=== PATIENT | female | born 1995 | race Caucasian/White ===

== ENCOUNTER 2024-08-12 20:24 | Inpatient (IN) | payer OTHER, SELFPAY ==
[2024-08-12] VITALS (17 sets, daily range): BP systolic 102–128; BP diastolic 56–68; PULSE 69–89; TEMP 36.4–36.7; O2SAT 96–99; BMI 37.5
[2024-08-12 18:59] LABS: Amnisure Rom* POSITIVE
[2024-08-12 19:37] LABS: Basophils Absolute Auto 0.02 K/uL (0.00-0.30); Basophils Percent Auto 0.2 % (0.0-3.0); Eosinophils Absolute Auto 0.12 K/uL (0.00-0.50); Eosinophils Percent Auto 1.3 % (0.0-7.0); Hemoglobin* 12.5 gm/dL (12.0-16.0); Immature Granulocytes Abs Auto 0.02 K/uL (0.00-0.30); Immature Granulocytes Pct Auto 0.2 %; Lymphocytes Percent Auto 13.8 % (20-44); Mean Corpuscular HGB Conc 35 gm/dL (32-36); Mean Corpuscular Hemoglobin 31 pg (26-34); Mean Corpuscular Volume 89 fL (80-100); Monocytes Percent Auto 6.3 % (0.0-11.0); Neutrophils Percent Auto 78.2 % (42.0-72.0); Platelet Count* 281 K/uL (140-440); RDW Coefficient of Variation % 12.5 % (11.5-15.5); Red Blood Count 4.07 m/uL (4.00-5.20); White Blood Count* 9.22 K/uL (4.50-11.00)
[2024-08-12 19:44] LABS: Albumin* 3.6 g/dL (3.3-5.0); Chloride* 103 mmol/L (96-114); Slide Review Reflex No
[2024-08-12 19:45] LABS: Potassium* 4.1 mmol/L (3.6-5.1); Sodium* 134 mmol/L (135-149)
[2024-08-12 19:47] LABS: Alkaline Phosphatase* 72 U/L (40-150); Anion Gap 7 mEq/L (7-15); Aspartate Amino Transferase* 18 U/L (12-35); Bilirubin Total* 1.3 mg/dL (0.1-1.5); Blood Urea Nitrogen* 11 mg/dL (5-24); Carbon Dioxide* 24 mmol/L (20-32); Creatinine* 0.7 mg/dL (0.5-1.5); Est. Creatinine Clearance* 105.74; Estimated Glomerular Filt Rate 119 ml/min; Glucose* 109 mg/dL (60-115); Total Protein* 6.7 g/dL (6.0-8.3)
[2024-08-12 19:48] LABS: Alanine Aminotransferase* 25 U/L (4-35); Calcium* 9.3 mg/dL (8.4-10.6)
[2024-08-12 20:01] LABS: Hemoglobin A1C* 4.7 % (0-5.6)
[2024-08-12 20:09] LABS: Appearance Urine Turbid (Clear); Bilirubin Urine Negative (Negative); Blood Urine Trace-intact (Negative); Color Urine Yellow (Yellow); Glucose Urine Negative (Negative); Ketones Urine Negative (Negative); Leukocyte Esterase Urine Negative (Negative); Nitrite Urine Negative (Negative); Protein Urine Negative (Negative); Specific Gravity Urine >= 1.030 (1.000-1.030)
[2024-08-12 20:15] LABS: Amphetamine Screen Urine Negative (Negative); Barbiturate Screen Urine Negative (Negative); Benzodiazepines Screen Urine Negative (Negative); Cannabinoid Screen Urine Negative (Negative); Cocaine Screen Urine Negative (Negative); Methadone Screen Urine Negative (Negative); Methamphetamines Screen Urine Negative (Negative); Opiate Screen Urine Negative (Negative); Oxycodone Screen Urine Negative (Negative); Phencyclidine Screen Urine Negative (Negative); Tricyclic Antidepressant Urine Negative (Negative)
[2024-08-12 20:18] LABS: Bacteria Urine Few; RBC Urine 0-2 (0-2); Squamous Epithelial Cell Urine Few (None-Few)
--- NOTE | 2024-08-12 20:45 | PM.OBHPLI ---
OB - H&P: HPI Labor/Induction History of Present Illness Time Seen by Provider: 20:45 Date Seen: 08/12/24 Chief Complaint: The patient is a 29 year old 2 para 1 at 38+0 weeks gestation by LMP, who presents with contractions and LOF. She reports no care this . Chief complaint: Maternity : 2 Para: 1 Date of last menstrual period: 11/20/23 Estimated date of delivery: 08/26/24 Gestational age based on last menstrual period: 38 Narrative: Edita Smith is a 29 year old female at 38+0 weeks by LMP who presents with contractions and LOF. Endorses contractions started yesterday afternoon that have waxed and waned, by now increasing in intensity and frequency. Also believes her water may have broken about one week ago. She is unsure of the exact day. Recalls a large gush of fluid like I wet my pants, with a subsequent sensation of leaking fluid thereafter. Endorses normal movement. Scant vaginal bleeding earlier today. Otherwise feeling well. No fever/chills/sweats, N/V, diarrhea, abdominal tenderness, malodorous vaginal discharge. She reports no care this . She did have several ultrasounds at [facility] in [place], believes at about 7 and 17 weeks. Was told that the measurements were c/w her LMP dating. Also had a 3D ultrasound at [facility] around 18 weeks, where she found out that she is carrying a girl. She has not had any labs drawn, has not seen a doctor or been evaluated at a hospital. States that she did not seek care d/t not having insurance. She started to apply through [employer], but I didn't have the right ID. Denies drug or alcohol use since finding out she was . History of vaginal delivery at 39 weeks on 03/23/22. Delivery at a hospital in [place], where she was living previously. Moved to [place] shortly after her son was born. Reports uncomplicated . Vaginal delivery complicated by what sounds like shoulder dystocia. She reports his shoulders got stuck. They had to cut me to my anus. Baby did well after delivery. Per patient, the laceration was repaired at the bedside; she did not have to be moved to the OR. Reports she was told shortly after the delivery that she should not have another vaginal delivery and future babies should be delivered by . Reports history of ovarian cysts. Believes these were diagnosed during her first . Does not recall their size. Remembers that they were followed on ultrasound during her care. She is concerned that these cysts may have had something to do with the shoulder dystocia, and contribute to her inability to have a subsequent vaginal delivery. Denies other significant medical history. Taking only vitamin. She lives in [place] with her significant other and son, Adalberto. History of Present Dating criteria: based on LMP care: none Ultrasounds: none Review of Systems Status of ROS: Reports: 10 or more systems reviewed and unremarkable except as noted in History and below Meds Home Medications and Allergies Home Medications ?Medication ?Instructions ?Recorded ?Confirmed ?Type vit no.95-ferrous 1 tab PO DAILY 08/12/24 08/12/24 History fumarate 28 mg-folic acid 800 mcg tablet ( Multivitamins) Allergies Allergy/AdvReac Type Severity Reaction Status Date / Time No Known Drug Allergies Allergy Verified 08/12/24 18:33 OB - H&P: Exam Physical Exam: Vital signs: Temp Pulse BP 98.0 F 72 118/62 08/12/24 18:43 08/12/24 18:41 08/12/24 18:41 Narrative: General appearance: Well-appearing adult female. Alert, oriented and appropriate. Sitting up in hospital bed. HEENT: EOMI, no conjunctival injection or discharge. MMM. Neck: Supple. CV: RRR, no rubs, murmurs or extra heart sounds. Pulm: CTAB, no wheezes, rales or rhonchi. Abdomen: Gravid. MSK: Moving all extremities. Ext: Warm and well-perfused. No LE edema. Skin: No rashes appreciated over exposed skin. Neuro: Grossly normal strength and sensation. No focal deficits. Psych: Normal affect. Detailed Labor and Delivery Exam: Comments: Cervix high. Could not be reached by RN. Fetus (Single): Heart Rate Baseline: 125 Monitor Accelerations: Present Monitor Decelerations: None Snf Variability: Moderate (6-25) OB - Results Labs Labs: Short CBC 08/12/24 Range/Units 19:19 WBC 9.22 (4.50-11.00) K/uL Hgb 12.5 (12.0-16.0) gm/dL Hct 36.0 (33.0-51.0) % Plt Count 281 (140-440) K/uL BMP 08/12/24 19:19 Sodium 134 L Potassium 4.1 Chloride 103 Carbon Dioxide 24 BUN 11 Creatinine 0.7 Glucose 109 Calcium 9.3 Liver Function 08/12/24 Range/Units 19:19 Total Bilirubin 1.3 (0.1-1.5) mg/dL AST 18 (12-35) U/L ALT 25 (4-35) U/L Alkaline Phosphatase 72 (40-150) U/L Albumin 3.6 (3.3-5.0) g/dL Urine 08/12/24 Range/Units 20:00 Urine Color Yellow (Yellow) Urine Appearance Turbid A (Clear) Urine pH 6.0 (5.0-8.5) Ur Specific [place] >= 1.030 (1.000-1.030) Urine Protein Negative (Negative) Urine Glucose (UA) Negative (Negative) OB - Problem Based A/P Additional Plan (1) Term : Problem details: 38w0d by LMP, but no care, and no reliable ultrasound Status: Acute (2) No care in current : Status: Acute (3) Prolonged antepartum rupture of membranes: Problem details: Per patient, gush of fluid possibly as long as 7 days prior. Amnisure positive on admission. Denies s/sx of infection. Normal vitals. Status: Acute (4) History of shoulder dystocia in prior : Problem details: Per patient report, no records are available. Reports episiotomy with complicated repair? Was counseled to have delivery with future pregnancies. Status: Acute Plan - [employer] MACHINE INSPECTOR consult, discussed with on-call physician Dr. Nancy Martin regarding patient's desire for delivery. [employer] MACHINE INSPECTOR will assume care. - Initial cervical exam high, could not be reached by RN - status reassuring, category I - Labs including CMP, CBC, HIV, Hep B, Hep C, syphilis, GC/chlam, UA, A1c, GBS, UDS - BPP and growth US - Possible prolonged ROM, but no current evidence of active infection
[2024-08-12] MEDS: TERBUTALINE 1 MG/ML INJ 0.25 MG SUBCUT (21:38)
[2024-08-12 21:39] LABS: Chlamydia DNA Amplified* NOT DETECTED (No Detected); GC DNA Amplified* NOT DETECTED (No Detected)
[2024-08-12] MEDS: LACTATED RINGERS 1000 ML 1,000 ML 500 ML IV (22:01)
[2024-08-12 23:00] LABS: Hepatitis B Surface Antigen* Negative (Negative)
[2024-08-12] MEDS: AMPICILLIN 2 GM in 0.9 % SODIUM CHLORIDE Mini-bag 100 ML IVPB (23:00)
--- NOTE | 2024-08-12 23:06 | PM.GYNCN1 ---
CORK TILE FLOOR LAYER - CN: HPI Data of Consult Date Seen: 08/12/24 Patient: Other Consult date: 08/12/24 Requesting Physician: Kristen Whitfield MD Primary Care Provider: Not a Local Provider Consult Narrative Reason for consult: other Narrative: Edita Smith is a 29 year old [id number] woman at 38 weeks by her own last menstrual period, reportedly consistent with 2 outside ultrasounds. She presented today in labor. She may have had rupture of membranes for nearly a week; her Amnisure is positive at this time, but her amniotic fluid was normal ultrasound and she has not been leaking fluid since her presentation to the hospital. She has been qutea regularly since for p.m. today. Her history is as outlined in Dr. Whitfield's note. She and her describes a shoulder dystocia with their 1st child, necessitating a large episiotomy that extended to 4th degree laceration. This was born in [place]. The delivering physician talk to both of them after the baby's , emphasizing the fact that she should plan for with all future deliveries. That was approximately 7 lb, 15 oz. cc:: CC: Nancy Martin MD [facility] Social History What is your current living situation?: I presently have a place to live Problems where you live: no known problems In the past 12 months, utilities in danger of being shut off: no In past 12 months, lack of transportation kept you from medical appts, meetings, work, or getting things needed for daily living: no In the past 12 mos, have been you worried that your food would run out before you had money to buy more?: never true In the past 12 mos, the food you bought just didn't last and you didn't have money to buy more?: never true Smoking Status: Former smoker How often does anyone, including family, friends and others, physically hurt you: never How often does anyone, including family, friends and others, insult or talk down to you: never How often does anyone, including family, friends and others, threaten you with harm: never How often does anyone, including family, friends and others, scream or curse at you: never Meds Home Medications and Allergies Home Medications ?Medication ?Instructions ?Recorded ?Confirmed ?Type vit no.95-ferrous 1 tab PO DAILY 08/12/24 08/12/24 History fumarate 28 mg-folic acid 800 mcg tablet ( Multivitamins) Allergies Allergy/AdvReac Type Severity Reaction Status Date / Time No Known Drug Allergies Allergy Verified 08/12/24 18:33 CORK TILE FLOOR LAYER - Exam Physical Exam: Vital signs: Temp Pulse BP 98.0 F 81 113/63 08/12/24 18:43 08/12/24 23:05 08/12/24 23:05 CORK TILE FLOOR LAYER - Results Labs Labs: Short CBC 08/12/24 Range/Units 19:19 WBC 9.22 (4.50-11.00) K/uL Hgb 12.5 (12.0-16.0) gm/dL Hct 36.0 (33.0-51.0) % Plt Count 281 (140-440) K/uL BMP 08/12/24 19:19 Sodium 134 L Potassium 4.1 Chloride 103 Carbon Dioxide 24 BUN 11 Creatinine 0.7 Glucose 109 Calcium 9.3 Liver Function 08/12/24 Range/Units 19:19 Total Bilirubin 1.3 (0.1-1.5) mg/dL AST 18 (12-35) U/L ALT 25 (4-35) U/L Alkaline Phosphatase 72 (40-150) U/L Albumin 3.6 (3.3-5.0) g/dL Urine 08/12/24 Range/Units 20:00 Urine Color Yellow (Yellow) Urine Appearance Turbid A (Clear) Urine pH 6.0 (5.0-8.5) Ur Specific [place] >= 1.030 (1.000-1.030) Urine Protein Negative (Negative) Urine Glucose (UA) Negative (Negative)
[2024-08-12 23:10] LABS: HIV 1/2/P24 Combo Screen* Negative (Negative)
--- NOTE | 2024-08-12 23:13 | PM.OBCN1 ---
OB - CN: HPI Date of Consult Date Seen: 08/12/24 Patient: Other Consult date: 08/12/24 Requesting Physician: Nancy Martin MD Primary Care Provider: Not a Local Provider Consult Narrative Narrative: Edita Smith is a 29 year old [id number] woman at 38 weeks by her own last menstrual period, reportedly consistent with 2 outside ultrasounds. She presented today in labor. She may have had rupture of membranes for nearly a week; her Amnisure is positive at this time, but her amniotic fluid was normal ultrasound and she has not been leaking fluid since her presentation to the hospital. She has been queta regularly since 4 p.m. today. Her history is as outlined in Dr. Whitfield's note. She and her describes a shoulder dystocia with their 1st child, necessitating a large episiotomy that extended to 4th degree laceration. This infant was born in [place]. The delivering physician talk to both of them after the baby's , emphasizing the fact that she should plan for with all future deliveries. That infant was approximately 7 lb, 15 oz. Edita has had no care. She is certain of the 1st day of her last period. The 2 ultrasounds that she has had this [facility] and at for profit ultrasound business that offered 3D ultrasound. She reports that both of these ultrasounds were consistent with her stated due date. I do not have access to those reports. Ultrasound here tonight shows the following: Biparietal diameter: 34 weeks 0 days. Head circumference: 34 weeks 1 day. Abdominal circumference: 35 weeks 3 days. Femur length: 36 weeks 0 days. Estimated weight: 2645 grams, 7th or 8th percentile. Estimated ultrasound age by today`s measurements is 34 weeks 6 days. Amniotic fluid volume appears within normal limits, single deepest pocket measuring 5.4 cm. breathing movements, motion, and tone were all observed. IMPRESSION: Single viable intrauterine with a biophysical profile 01/17. Limited evaluation of the head given positioning, but EFW estimated at the 7th or 8th percentile. She has no surgical history. She would like to have at least one more child. History History 2 Elective abortions Para 1 Spontaneous abortions Hx # Term Pregnancies Ectopic pregnancies Hx # Pregnancies Multiple births Number of Living Children 1 Labs GBS status: unknown OB Labs: Lab Assessment Start: 08/12/24 21:48 Freq: ONCE Status: Complete Protocol: PC.OBGBS Activity Type Activity Date Activity User E-sign Co-sign Detail Recorded Client Recorded Date Recorded By Document 08/12/24 21:52 JULIETA [id number] 08/12/24 21:53 STOCKERSofy 08/12/24 21:52 Lab Assessment GBS Status unknown GBS Additional Criteria None Are Labs Available Yes Maternal Blood Type O Maternal RH Factor Negative Hepatitis B Surface Antigen Unknown Maternal HIV Status Unknown Maternal Syphillis (RPR) Status Unknown Lab Assessment Start: 08/12/24 22:53 Freq: ONCE Status: Complete Protocol: PC.OBGBS Activity Type Activity Date Activity User E-sign Co-sign Detail Recorded Client Recorded Date Recorded By Document 08/12/24 22:53 DIOMEDE No Response 08/12/24 22:55 DIOMEDE 08/12/24 22:53 Lab Assessment GBS Status unknown GBS Additional Criteria ROM Greater Than 18 Hours Is Patient Allergic to Penicillin? No Treatment Required OK Maternal RH Factor Negative PFSH PFSH Social History What is your current living situation?: I presently have a place to live Problems where you live: no known problems In the past 12 months, utilities in danger of being shut off: no In past 12 months, lack of transportation kept you from medical appts, meetings, work, or getting things needed for daily living: no In the past 12 mos, have been you worried that your food would run out before you had money to buy more?: never true In the past 12 mos, the food you bought just didn't last and you didn't have money to buy more?: never true Smoking Status: Former smoker How often does anyone, including family, friends and others, physically hurt you: never How often does anyone, including family, friends and others, insult or talk down to you: never How often does anyone, including family, friends and others, threaten you with harm: never How often does anyone, including family, friends and others, scream or curse at you: never Meds Home Medications and Allergies Home Medications ?Medication ?Instructions ?Recorded ?Confirmed ?Type vit no.95-ferrous 1 tab PO DAILY 08/12/24 08/12/24 History fumarate 28 mg-folic acid 800 mcg tablet ( Multivitamins) Allergies Allergy/AdvReac Type Severity Reaction Status Date / Time No Known Drug Allergies Allergy Verified 08/12/24 18:33 OB - H&P: Exam Physical Exam: Vital signs: Temp Pulse BP 98.0 F 81 113/63 08/12/24 18:43 08/12/24 23:05 08/12/24 23:05 Narrative: Physical exam: Vitals as noted above. General: No acute distress Psych: Alert and oriented x 3, full affect HEENT: Normocephalic, atraumatic Abdomen: Soft, nontender, gravid. Pelvic exam: Mons normal, clitoris normal, urethral meatus normal. Labia minora and majora normal in appearance bilaterally. Perineum and anus normal appearance. Perineal body is not small. Vaginal introitus normal appearance. Sterile cervical exam shows cervix to be 5 cm, 90%, 0-+1 station, soft. Vertex. tracing demonstrates baseline 130, accelerations present, no decelerations, moderate variability. She was given terbutaline while I was in the operating room, as she had initially planned to have a . She then stopped having contractions, until our exam, at which time contractions began a new. OB - Results Labs Labs: Short CBC 08/12/24 Range/Units 19:19 WBC 9.22 (4.50-11.00) K/uL Hgb 12.5 (12.0-16.0) gm/dL Hct 36.0 (33.0-51.0) % Plt Count 281 (140-440) K/uL BMP 08/12/24 19:19 Sodium 134 L Potassium 4.1 Chloride 103 Carbon Dioxide 24 BUN 11 Creatinine 0.7 Glucose 109 Calcium 9.3 Liver Function 08/12/24 Range/Units 19:19 Total Bilirubin 1.3 (0.1-1.5) mg/dL AST 18 (12-35) U/L ALT 25 (4-35) U/L Alkaline Phosphatase 72 (40-150) U/L Albumin 3.6 (3.3-5.0) g/dL Urine 08/12/24 Range/Units 20:00 Urine Color Yellow (Yellow) Urine Appearance Turbid A (Clear) Urine pH 6.0 (5.0-8.5) Ur Specific [place] >= 1.030 (1.000-1.030) Urine Protein Negative (Negative) Urine Glucose (UA) Negative (Negative) OB - CN: A/P Assessment and Plan (1) Term : Problem details: 38w0d by LMP, but no care, and no reliable ultrasound Status: Acute (2) No care in current : Status: Acute (3) Prolonged antepartum rupture of membranes: Problem details: Per patient, gush of fluid possibly as long as 7 days prior. Amnisure positive on admission. Denies s/sx of infection. Normal vitals. Status: Acute (4) History of shoulder dystocia in prior : Problem details: Per patient report, no records are available. Reports episiotomy with complicated repair? Was counseled to have delivery with future pregnancies. Status: Acute Plan I knowledge that we have poor dating in this . This being said, the patient has an samuel on her phone which she is used to track her weeks gestation, and it has generally agreed with the due days she received at 2 outside ultrasounds. It is possible that she is not as far along as she explains, and that this fetus is not actually growth restricted but rather pre term, but I favor her having a term with a growth restricted . I will manage her as such. Continuous monitoring will be employed. She is in labor by any definition. I am uncertain of the status of her membranes; she had a large gush of fluid a week ago, and has a positive AmniSure, but this test suffers from false positives. I will manage her as a patient with prolonged rupture and will begin ampicillin for unknown status with prolonged rupture. We discussed her history of shoulder dystocia and 4th degree laceration at length. The estimated weight on ultrasound is 5 lb, 13.8 oz. her perineal body is normal, her pelvis normal on exam, and the head is well engaged in the pelvis. I think a recurrent severe laceration is highly unlikely, as is a recurrent shoulder dystocia. I am willing to perform a by her request, and acknowledge that this is what her last physician strongly recommended. We discussed the risks of in the impact on future pregnancies. Thereafter, she opted to attempt a vaginal and requested an epidural. Given her history, I will assume her care at this time, and Dr. Whitfield will attend the as a Pediatrics provider.
[2024-08-12 23:17] LABS: Hepatitis C Virus Antibody* Negative (Negative)
[2024-08-12 23:18] LABS: Hepatitis B Surface Antibody* Negative (Negative)
[2024-08-12] MEDS: LIDOCAINE 2% (PF) 5 ML VIAL EPIDURAL (23:32)
[2024-08-12] MEDS: ROPIVACAINE 0.2% 100 ml 100 ML 12 MG EPIDURAL (23:32)
--- NOTE | 2024-08-12 23:41 | PM.ANBPRC ---
PFSH PFS Social History What is your current living situation?: I presently have a place to live Problems where you live: no known problems In the past 12 months, utilities in danger of being shut off: no In past 12 months, lack of transportation kept you from medical appts, meetings, work, or getting things needed for daily living: no In the past 12 mos, have been you worried that your food would run out before you had money to buy more?: never true In the past 12 mos, the food you bought just didn't last and you didn't have money to buy more?: never true Smoking Status: Former smoker How often does anyone, including family, friends and others, physically hurt you: never How often does anyone, including family, friends and others, insult or talk down to you: never How often does anyone, including family, friends and others, threaten you with harm: never How often does anyone, including family, friends and others, scream or curse at you: never Meds Home Medications and Allergies Home Medications ?Medication ?Instructions ?Recorded ?Confirmed ?Type vit no.95-ferrous 1 tab PO DAILY 08/12/24 08/12/24 History fumarate 28 mg-folic acid 800 mcg tablet ( Multivitamins) Allergies Allergy/AdvReac Type Severity Reaction Status Date / Time No Known Drug Allergies Allergy Verified 08/12/24 18:33 Results Labs Labs: Laboratory Results - last 24 hr 08/12/24 08/12/24 08/12/24 18:40 19:19 20:00 WBC 9.22 RBC 4.07 Hgb 12.5 Hct 36.0 MCV 89 MCH 31 MCHC 35 RDW Coeff of Mitali 12.5 Plt Count 281 Neut % (Auto) 78.2 H Lymph % (Auto) 13.8 L [place] % (Auto) 6.3 Eos % (Auto) 1.3 Baso % (Auto) 0.2 Neut # (Auto) 7.20 H Lymph # (Auto) 1.30 [place] # (Auto) 0.60 Eos # (Auto) 0.12 Baso # (Auto) 0.02 Abs Immat Gran (auto) 0.02 Imm/Tot Granulo (auto) 0.2 Sodium 134 L Potassium 4.1 Chloride 103 Carbon Dioxide 24 Anion Gap 7 BUN 11 Creatinine 0.7 Estimated Creat Clear 105.74 Estimated GFR 119 Glucose 109 Hemoglobin A1c 4.7 Calcium 9.3 Total Bilirubin 1.3 AST 18 ALT 25 Alkaline Phosphatase 72 Total Protein 6.7 Albumin 3.6 Urine Color Yellow Urine Appearance Turbid A Urine pH 6.0 Ur Specific [place] >= 1.030 Urine Protein Negative Urine Glucose (UA) Negative Urine Ketones Negative Urine Blood Trace-intact A Urine Nitrite Negative Urine Bilirubin Negative Urine Urobilinogen 1.0 Ur Leukocyte Esterase Negative Urine RBC 0-2 Urine WBC 2-5 Ur Squamous Epith Cells Few Urine Bacteria Few A Membrane Rupture POSITIVE Urine Opiates Screen Negative Ur Oxycodone Screen Negative Urine Methadone Screen Negative Ur Barbiturates Screen Negative U Tricyclic Antidepress Negative Ur Phencyclidine Scrn Negative Ur Amphetamines Screen Negative U Methamphetamines Scrn Negative U Benzodiazepines Scrn Negative Urine Cocaine Screen Negative U Marijuana (THC) Screen Negative Ur Drug Screen Comment See Note C.trachomatis Ampl DNA NOT DETECTED Hep Bs Antigen Negative Hep Bs Antibody Negative Hepatitis C Antibody Negative HIV 1&2 Ab/P24 Ag 4thGn Negative N.gonorrhoeae Ampl DNA NOT DETECTED Blood Type O Positive Antibody Screen NEGATIVE Vital Signs Vital Signs: Last Vital Signs Temp 97.5 F L 08/12/24 23:13 Pulse 81 08/12/24 23:40 BP 117/60 08/12/24 23:40 Pulse Ox 98 08/12/24 23:33 Weight: 102.376 kg Height: 165.1 cm Anesthesia Procedures Epidural Insertion Patient Location: OB Start Time: 22:59 Stop Time: 23:59 Start Date: 08/12/24 Stop Date: 08/12/24 Reason for Block: procedure for pain Patient Position: sitting Performed By: Donna Heredia Preanesthetic Checklist: IV checked, risks and benefits discussed, monitors and equipment checked, pre-op evaluation, timeout performed and anesthesia consent Prep: chlorhexidine gluconate Monitoring: blood pressure monitoring, continuous pulse oximetry and heart rate Approach: midline Vertebral Space: lumbar (1-5) Epidural Technique: LUCIA saline Needle Type: Tuohy needle Injection Technique: continuous catheter Needle gauge: 17 Needle Length (cm): 10 cm Needle Insertion Depth (cm): 9 Catheter Gauge: 19 Catheter Type: multi-orifice Catheter at skin depth (cm): 18 Test Dose Result: negative and lidocaine 1.5% with epinephrine 1 to 200,000
[2024-08-12] MEDS: PHENYLEPHRINE 100 MCG/ML SYRINGE IVP (23:48)
[2024-08-12] MEDS: LACTATED RINGERS 1000 ML 1,000 ML 825 ML IV (23:49)
[2024-08-13] VITALS (53 sets, daily range): BP systolic 77–129; BP diastolic 39–69; PULSE 60–86; RESP 16; TEMP 36.3–36.9; O2SAT 95–98
[2024-08-13] MEDS: PHENYLEPHRINE 100 MCG/ML SYRINGE IVP ×3 (00:36→03:05)
[2024-08-13] MEDS: AMPICILLIN 1 GM in 0.9 % SODIUM CHLORIDE Mini-bag 100 ML IVPB ×2 (02:54→07:17)
[2024-08-13] MEDS: ePHEDrine sulfate 5 MG/ML inj 10 MG IVP ×2 (03:19→05:34)
[2024-08-13] MEDS: OXYTOCIN 30 unit/500 ML in NS 30 UNIT/500 ML BAG IVPB (03:26)
[2024-08-13] MEDS: LACTATED RINGERS 1000 ML 1,000 ML 125 ML IV (06:00)
[2024-08-13] MEDS: ROPIVACAINE 0.2% 100 ml 100 ML 12 MG EPIDURAL (07:20)
--- NOTE | 2024-08-13 08:58 | W.PM.VAGDEL1 ---
Procedure Procedure Done: Global Narrative: The patient is a 29 year-old admitted on 08/13/24 at 38.0 weeks gestation based LMP. She has no care due to concern about insurance coverage. She presented with PPROM and spontaneous labor. GBS unknown. Treated with ampicillin intrapartum Labor Analgesia: Epidural Pitocin: Yes, for augmentation of labor and active 3rd stage management. SROM/AROM: SROM time unclear per patient report. Positive AmniSure on admission On cervical exam @ 0800 she was 9/90/0 with bulging forebag. AROM performed on forebag. Cervix changed to complete and rapid head descent occurred. Clear fluid. Complete: 08/13/24 at 0800 Pushin08/13/24 at 0804 heart tones during second stage were cat I At 0810 a viable female infant delivered in vertex OA presentation over intact via spontaneous vaginal delivery. The 's body was delivered in the usual manner without difficulty. The infant was placed on maternal abdomen. The cord was clamped and cut after a 30-60 second delay. The nose and mouth were bulb suctioned. weight: 6lb 2oz. 9 at 1 minute and 9 at 5 minutes. Shoulder dystocia: No. Nuchal cord: No Placenta delivered spontaneously and complete at 0813 with a 3-vessel cord. Placenta examined and noted to be complete. Appears to have double layer of amniotic membrane. Will send to pathology due to no care. The cervix and vagina were inspected for lacerations, and none were noted. Laceration(s): none Complications: none Estimated blood loss: 100 cc Sponge and needles counts are correct. Mother and infant were stable at the time of this note.
--- NOTE | 2024-08-13 12:30 | PM.ANPOST ---
Post Anesthesia Note Post Anesthesia Note Patient seen: Inpatient Respiratory Status: adequate Cardiovascular Status: adequate Mental Status: baseline Pain: adequate Temp: baseline Anesthetic awareness: N/A Complications: none Follow care: none
[2024-08-13 15:00] LABS: Strep B DNA Probe Negative (Negative)
[2024-08-13 15:14] LABS: Strep B Susceptibility Needed? No
[2024-08-13] MEDS: ACETAMINOPHEN 500 MG TABLET 1000 MG PO (16:12)
[2024-08-13] MEDS: DOCUSATE SODIUM 100 MG CAPSULE PO (16:13)
--- NOTE | 2024-08-13 16:37 | PC.SOCIAL ---
Discharge planning: railroad emergency services manager received a consult for the pt in relation to pt not having active health insurance. Social work spoke to pt's nurse and will plan to meet with the pt tomorrow about health insurance resources. Social work to follow-up as needed.
[2024-08-14 00:28] VITALS: BP 114/77; PULSE 67; RESP 16; TEMP 36.4; O2SAT 97
[2024-08-14] MEDS: IBUPROFEN 600 MG TABLET PO (00:31)
[2024-08-14 05:30] VITALS: BP 108/67; PULSE 67; RESP 16; TEMP 36.4
[2024-08-14 06:34] LABS: Hemoglobin* 12.2 gm/dL (12.0-16.0)
[2024-08-14 08:02] VITALS: PULSE 72; RESP 17; TEMP 36.3; O2SAT 96
--- NOTE | 2024-08-14 08:16 | PM.OBDSVD1 ---
DS: Providers Provider Date Seen: 08/14/24 Date of admission: 08/12/24 20:24 Primary care physician: Not a Local Provider Admitting Clinician: Nancy Martin MD Consults: 08/12/24 19:14 Consult to Testing And Regulating Technician [CONS] Routine Comment: Reason for Consult:: Info about Medicare/[place] Attending Physician on discharge: Radha Clarke CNM DS: Diagnosis Discharge Diagnosis (1) care and examination immediately after delivery: Status: Acute (2) Lactating mother: Status: Acute (3) No care in current : Status: Acute Exam Narrative: Exam Narrative: GENERAL APPEARANCE:? normal affect, alert, no distress MOOD:? appropriate CHEST:? clear to auscultation HEART:? regular rate and rhythm ABDOMEN:? soft, non-tender the uterine fundus is At Umbilicus, Midline and is appropriate for the stage of recovery. PERINEUM:? mild edema of the perineum. EXTREMITIES:? normal and no edema Const: Vital Signs, click to edit/add: Vital Signs - 24 hr 08/13/24 08:30 08/13/24 08:30 08/13/24 08:45 Temperature 98.4 F Pulse Rate 86 65 Pulse Rate [Pulse Oximeter] Respiratory Rate Blood Pressure 129/57 L 111/55 L Blood Pressure [Le ft Arm] Pulse Oximetry 98 Oxygen Delivery Me thod 08/13/24 08:45 08/13/24 09:00 08/13/24 09:00 Temperature 98.4 F 98.4 F Pulse Rate 65 Pulse Rate [Pulse Oximeter] Respiratory Rate Blood Pressure 110/59 L Blood Pressure [Le ft Arm] Pulse Oximetry 98 98 Oxygen Delivery Me thod 08/13/24 09:15 08/13/24 09:15 08/13/24 09:30 Temperature 98.4 F Pulse Rate 72 67 Pulse Rate [Pulse Oximeter] Respiratory Rate Blood Pressure 112/62 111/62 Blood Pressure [Le ft Arm] Pulse Oximetry 98 Oxygen Delivery Me thod 08/13/24 09:30 08/13/24 09:45 08/13/24 09:45 Temperature 98.4 F 98.4 F Pulse Rate 65 Pulse Rate [Pulse Oximeter] Respiratory Rate Blood Pressure 109/64 Blood Pressure [Le ft Arm] Pulse Oximetry 98 98 Oxygen Delivery Me thod 08/13/24 10:00 08/13/24 10:00 08/13/24 10:15 Temperature 98.4 F Pulse Rate 68 70 Pulse Rate [Pulse Oximeter] Respiratory Rate Blood Pressure 110/63 109/61 Blood Pressure [Le ft Arm] Pulse Oximetry 98 Oxygen Delivery Me thod 08/13/24 13:41 08/13/24 16:50 08/13/24 20:35 Temperature 98.4 F 97.3 F L Pulse Rate Pulse Rate [Pulse Oximeter] 82 65 68 Respiratory Rate 16 16 16 Blood Pressure Blood Pressure [Le ft Arm] 90/52 L 99/61 100/62 Pulse Oximetry 97 97 95 Oxygen Delivery Me thod Room Air Room Air Room Air 08/14/24 00:28 08/14/24 05:30 08/14/24 08:02 Temperature 97.6 F 97.6 F 97.3 F L Pulse Rate Pulse Rate [Pulse Oximeter] 67 67 72 Respiratory Rate 16 16 17 Blood Pressure Blood Pressure [Le ft Arm] 114/77 108/67 Pulse Oximetry 97 96 Oxygen Delivery Me thod Room Air Room Air OB - DS: Summary Hospital Course Hospital Course: Edita is a 29 y.o. G 2 P 2 who was admitted to [facility] for spontaneous onset of labor with SROM possibly 7 days earlier. ?She had a NVD that was uncomplicated. The patient feels well. ?The pain is well controlled with current medications. ?She has no new complaints. ?She is breast feeding and reports things are going well. the patient has done well.? Vitals have been stable.? She has remained afebrile.? Has a good appetite, is tolerating a general diet. ?She is voiding without difficulty.? She is passing gas and has not had a bowel movement.? She is ambulating and denies any dizziness.? Has small amount of rubra lochia. She is considering options for prevention. Problems: lact of insurance Discharge home with baby.? Follow up in 2 weeks and 6 weeks.? , may see if needed? Hgb 12.2. ?? For pain control of perineum, breast and pelvic pain, take 600 mg Ibuprofen every 6 hours as needed by mouth or 1000 mg acetaminophen (Tylenol) every 6 hours by mouth as needed. You can alternate these so you are taking something every 3 hours as needed. A heating pad can also be used for your abdomen or breasts. You may also take docusate sodium up to twice daily to soften your stools and help to prevent constipation. You may wean off of it when your stools return to normal.? Peripartum Data delivery method: Vaginal Laceration description: None complications: none Infant Gender: Female Discharge Plan: Home Status at Discharge Functional status at discharge: independent ambulation Overall status at discharge: patient is progressing back to baseline Time Spent with Patient Time attestation: Total time spent providing and/or coordinating discharge services: Time spent: Less than 30 minutes Discharge Plan Discharge Disposition: Home, Self-Care Date of Admission: 08/12/24 20:24 Attending Provider on Discharge: Radha Clarke Primary Care Provider: Provider,Not a Local Condition: Stable Anticipated Discharge Date/Time: 08/14/24 12:00 Discharge Medications: New acetaminophen 500 mg Tablet 1,000 mg PO Q6H PRNQty: 0 0RF docusate sodium 100 mg Capsule 100 mg PO DAILY Qty: 90 0RF ibuprofen 600 mg Tablet 600 mg PO Q6H PRNQty: 60 0RF Continued PNV cmb#[id number]-ferrous fumarate-FA [ Multivitamins] 28 mg iron- 800 mcg tablet 1 tab PO DAILY Discharge Orders: Discharge Order (Routine); Ordered 08/14/24 Ordered By: Radha Clarke Patient Education: OB Over the Counter Medication Information, OB Vaginal/Breast Feeding Additional Instructions: Discharge instructions were reviewed with the patient including signs and symptoms of infection and home going medications Nothing vaginally for 6 weeks: no tampons or intercourse Off Work or School for 6 weeks 2-week visit: discuss feeding concerns, review control options and screen for anxiety/depression. 6-week visit for an annual exam. consultation services are available to all mothers and babies for the first year after delivery.? To make an appointment, please call [phone]. Activity Level: Activity as Tolerated Discharge Diet: Regular Follow Up Appointments: [facility] [Provider Group] Forms: [place] Info Instructions
[2024-08-14 13:23] LABS: Rubella Antibody IgG 15.8 IU/mL
[2024-08-14 13:30] LABS: Rapid Plasma Reagin (RPR) Non Reactive (Non Reactive)
[2024-08-14 14:45] LABS: Hepatitis B Core Antibodies Negative (Negative)
[2024-08-15 02:24] LABS: Rapid Plasma Reagin (RPR) Non Reactive (Non Reactive)
--- NOTE | 2024-08-15 11:03 | PC.SOCIAL ---
Telephone encounter. SW called patient and left voicemail with social media job titles's name and callback number.
== END 2024-08-14 10:37 | disposition home or self-care (01) | DRG 807 ==
LOC: OB OUT 20:24 → OB 20:24
PROVIDERS: Family Medicine; Obstetrics & Gynecology; Admitting Provider Obstetrics & Gynecology; Visit Provider Obstetrics & Gynecology
DX: O42.12 Full-term premature rupture of membranes, onset of labor more than 24 hours following rupture (principal); Z37.0 Single live birth; Z3A.38 38 weeks gestation of pregnancy
CPT/HCPCS: 01967; 36415; 76815; 76819; 80053; 80306; 81001; 81003; 83036; 84112; 85018; 85025; 86592; 86703; 86704; 86706; 86762; 86803; 86850; 86900; 86901; 87081; 87086; 87340; 87491; 87591; 87653; 88307; A9270; J0290; J2371; J2795; J3105; J7120

== ENCOUNTER 2024-10-23 06:18 | Emergency (ER) | payer OTHER, SELFPAY ==
--- OUTSIDE RECORDS SUMMARY | 2024-10-23 06:21 | XMS_ITS | Clinical Summary ---
Author Organization [facility] Address [address] [place] [address] Care Team Providers Care General Technician Name Role Phone Needs Pcp, Assignment Primary Care Provider [phone] Source Comments You are receiving this document as you are listed as the primary care provider,follow-up provider, or the patient has been referred to you for consultation.This is in compliance with the Medicare and[facility] EHR Incentive Program,which states Providers who transition their patient to another setting of careor provider of care or refers their patient to another provider of care shouldprovide summary care record for each transition of care or referral. [facility] Allergies No known active allergies Medications * This document contains information received from the source organization and may not represent a complete record from that organization. MV-Min-Fe Fum-FA-DHA ( 1 OR) Acti ve Active Problems No known active problems Social History Tobacco Use Types Packs/Day Years Used Date Smoking Tobacco: Never Tobacco Cessation:Counseling Given: Not Answered Alcohol Use Standard Drinks/Week Comments Not Currently 0 (1 standard drink = 0.6 oz pur e alcohol) Depression Answer Date Recor ded Last EPDS Total Score 10 07/21/2024 Last EPDS Self Harm Result Not on file 07/21 Comments No Sex and Gender Information Value Date Recorded Sex Assigned at Not on file Legal Sex Female 9:18 AM PATROLLER Gender Identity Not on file Sexual Orientation Not on file Last Filed Vital Signs Vital Sign Reading Time Taken Comments Blood Pressure 136/88 05/16/2022 2:12 PM PATROLLER Pulse - - Temperature - - Respiratory Rate - - Oxygen Saturation - - Inhaled Oxygen Concentration - - Weight 97.5 kg (215 lb) 05/16/2022 2:12 PM PATROLLER Height - - Body Mass Index - - Plan of Treatment Health Maintenance Due Date Last Done Comments Cervical Cancer Screening Due 1994 Hep C Screening (Preventive Services) 1994 HIV Screening (Preventive Services) 2010 Adult Preventive Visit 01/31/2012 DTaP/Tdap/Td Vaccine (1 - Tdap) 2013 HepB Vaccine (1) 2013 COVID-19 Vaccine ( - 2023-2 5 season) 2024 Influenza Vaccine (Season Ended) 2025 Zoster/Shingles Vaccine (1 of 2) 01/31/2044 HPV Vaccine Aged Out No longer eligi ble based on patient's age to complete this topic HepA Vaccine Aged Out No longer eligi ble based on patient's age to complete this topic Hib Vaccine Aged Out No longer eligi ble based on patient's age to complete this topic IPV (Polio) Vaccine Aged Out No longe r eligible based on patient's age to complete this topic MCV4 Vaccine Aged Out No longer eligi ble based on patient's age to complete this topic Meningococcal B Vaccine Aged Out No l onger eligible based on patient's age to complete this topic Pneumococcal Vaccine Aged Out No long er eligible based on patient's age to complete this topic Care Teams General Technician Relationship Specialty Start Date End Date Needs Pcp, [place] [address] PCP - General 05/16/22
[2024-10-23 06:24] VITALS: BP 108/72; PULSE 77; RESP 16; TEMP 36.4; O2SAT 96; BMI 36.1
[2024-10-23] MEDS: 0.9 % SODIUM CHLORIDE 1000 ml 1,000 ML IV (07:08)
[2024-10-23 07:17] LABS: Basophils Absolute Auto 0.01 K/uL (0.00-0.30); Basophils Percent Auto 0.1 % (0.0-3.0); Eosinophils Absolute Auto 0.08 K/uL (0.00-0.50); Eosinophils Percent Auto 1.2 % (0.0-7.0); Hematocrit 40.6 % (33.0-51.0); Hemoglobin* 13.7 gm/dL (12.0-16.0); Immature Granulocytes Abs Auto 0.01 K/uL (0.00-0.30); Immature Granulocytes Pct Auto 0.1 %; Lymphocytes Percent Auto 15.5 % (20-44); Mean Corpuscular HGB Conc 34 gm/dL (32-36); Mean Corpuscular Hemoglobin 30 pg (26-34); Mean Corpuscular Volume 88 fL (80-100); Monocytes Percent Auto 7.1 % (0.0-11.0); Platelet Count* 243 K/uL (140-440); Red Blood Count 4.63 m/uL (4.00-5.20); White Blood Count* 6.73 K/uL (4.50-11.00)
--- NOTE | 2024-10-23 07:19 | ED_ITS ---
HPI - General Adult General Chief complaint: Syncope/Fainted <Robyn Anderson MD - Last Filed: 10/25/24 23:59> Stated complaint: Possible dehydrated, lost conscious <Robyn Anderson MD - Last Filed: 10/25/24 23:59> Time Seen by Provider: 10/23/24 06:42 <Robyn Anderson MD - Last Filed: 10/25/24 23:59> Source: patient <Robyn Anderson MD - Last Filed: 10/25/24 23:59> Mode of arrival: ambulatory <Robyn Anderson MD - Last Filed: 10/25/24 23:59> Limitations: no limitations <Robyn Anderson MD - Last Filed: 10/25/24 23:59> History of Present Illness HPI narrative: 29-year-old female presents the emergency department after a syncopal episode at home. She delivered an uncomplicated viable fetus on 08/13/2024 at 38 weeks gestation. Vaginal delivery, no complications, spontaneous labor. No infections or poor complications. She is not . She reports that she did get menstrual cycle back at 35 days , lasted 8 days but was very light and spotty in September. She says that her periods started again 2 days ago, initially light and then becoming more heavy yesterday. This morning when she got up to go to the bathroom, she had a gush of blood again, no clots. But felt lightheaded while sitting on the toilet and seem to pass out for a few seconds. She fell off the toilet and hit her head on the shower edge. No seizure activity. Came to quickly, no postictal type symptoms. No chest pain. No severe shortness of breath. No injuries associated with the small fall. She feels a little weak and slightly lightheaded but that has improved since she has gotten to triage. Is drinking water without difficulty, texting on her phone. No focal neurological changes are noted. She reports that her menstrual cycle came back this quickly with her 1st child as well, this is her 2nd baby. Reports that her menstrual flow is moderate to heavy but no severe blood clots, soaking through a pad per hour or signs of serious hemorrhage. She is not running any fever, having any symptoms mastitis, no abdominal symptoms. She is not taking any type of contraceptive currently. No history of cardiac issues, arrhythmias. Reports that she was not anemic in the . Review of the records, course shows a hemoglobin of 12- 1/2. She reports that her past medical history is benign, no major long-term health problems. No prescription medications, no allergies. Nonsmoker. No history of DVT PE E or significant hemorrhage. ROS is notable for the generalized symptoms as described above only, otherwise denies times 12 systems. <Robyn Anderson MD - Last Filed: 10/25/24 23:59> Related Data Home medications: Home Medications ?Medication ?Instructions ?Recorded ?Confirmed No Known Home Medications 10/23/24 10/23/24 <Robyn Anderson MD - Last Filed: 10/25/24 23:59> Allergies/adverse reactions: Allergies Allergy/AdvReac Type Severity Reaction Status Date / Time No Known Drug Allergies Allergy Verified 08/12/24 18:33 <Robyn Anderson MD - Last Filed: 10/25/24 23:59> [facility] Social History: Social History What is your current living situation?: I presently have a place to live Problems where you live: no known problems In the past 12 months, utilities in danger of being shut off: no In past 12 months, lack of transportation kept you from medical appts, meetings, work, or getting things needed for daily living: no In the past 12 mos, have been you worried that your food would run out before you had money to buy more?: never true In the past 12 mos, the food you bought just didn't last and you didn't have money to buy more?: never true Smoking Status: Former smoker How often do you have a drink containing alcohol: never How often do you have six or more drinks on one occasion: Never AUDIT-C Alcohol total score: 0 Non-prescribed substance use: denies use How often does anyone, including family, friends and others, physically hurt you : never How often does anyone, including family, friends and others, insult or talk down to you: never How often does anyone, including family, friends and others, threaten you with harm: never How often does anyone, including family, friends and others, scream or curse at you: never <Robyn Anderson MD - Last Filed: 10/25/24 23:59> Exam Const: Vital Signs, click to edit/add: Vital Signs - 24 hr 10/23/24 06:24 Temperature 97.6 F Pulse Rate [Pulse Oximeter] 77 Respiratory Rate 16 Blood Pressure [Ri ght Upper Arm] 108/72 Pulse Oximetry 96 Oxygen Delivery Me thod Room Air <Robyn Anderson MD - Last Filed: 10/25/24 23:59> Vital Signs, click to edit/add: Vital Signs - 24 hr 10/23/24 06:24 Temperature 97.6 F Pulse Rate [Pulse Oximeter] 77 Respiratory Rate 16 Blood Pressure [Ri ght Upper Arm] 108/72 Pulse Oximetry 96 Oxygen Delivery Me thod Room Air <Deny Biggs MD - Last Filed: 10/23/24 09:02> Documenting provider has reviewed patient's vital signs: yes <Robyn Anderson MD - Last Filed: 10/25/24 23:59> Common normals: no apparent distress and alert <Robyn Anderson MD - Last Filed: 10/25/24 23:59> General appearance: cooperative and well kempt <Robyn Anderson MD - Last Filed: 10/25/24 23:59> Other: Good historian. Appears well nourished and well hydrated. <Robyn Anderson MD - Last Filed: 10/25/24 23:59> HENMT: Common normals: normocephalic <Robyn Anderson MD - Last Filed: 10/25/24 23:59> Head and scalp: normocephalic <Robyn Anderson MD - Last Filed: 10/25/24 23:59> Face and sinus: normal facial exam <Robyn Anderson MD - Last Filed: 10/25/24 23:59> Mouth: oral and palatal mucosa normal <Robyn Anderson MD - Last Filed: 10/25/24 23:59> Throat: posterior oropharynx normal <MD Sandra Carlisle Last Filed: 10/25/24 23:59> Eye: Common normals: conjunctivae normal <MD Sandra Carlisle Last Filed: 10/25/24 23:59> General eye: normal appearance of both eyes <MD Sandra Carlisle Last Filed: 10/25/24 23:59> Conjunctiva: conjunctiva(e) normal <MD Sandra Carlisle Last Filed: 10/25/24 23:59> Neck & C-Spine: Common normals: full ROM and no lymphadenopathy <MD Sandra Carlisle Last Filed: 10/25/24 23:59> General: normal visual inspection <MD Sandra Carlisle Last Filed: 10/25/24 23:59> Chest: Common normals: inspection of chest normal <MD Sandra Carlisle Last Filed: 10/25/24 23:59> Resp: Common normals: normal respiratory effort, no use of accessory muscles and clear to auscultation bilaterally <MD Sandra Carlisle Last Filed: 10/25/24 23:59> Effort & inspection: able to speak in complete sentences <MD Sandra Carlisle Last Filed: 10/25/24 23:59> Auscultation: clear to auscultation bilaterally <MD Sandra Carlisle Last Filed: 10/25/24 23:59> Cardio: Common normals: regular rate and regular rhythm <MD Sandra Carlisle Last Filed: 10/25/24 23:59> Rate: regular rate <MD Sandra Carlisle Last Filed: 10/25/24 23:59> Rhythm: regular rhythm <MD Sandra Carlisle Last Filed: 10/25/24 23:59> Other: Slight S1 splitting but otherwise normal S1 and S2. No obvious murmur. No gallop. <MD Sandra Carlisle Last Filed: 10/25/24 23:59> GI: Common normals: Normal to inspection, nondistended, normoactive bowel sounds present, soft to palpation, non-tender, no hepatosplenomegaly and no masses <MD Sandra Carlisle Last Filed: 10/25/24 23:59> Palpation: soft and no hepatosplenomegaly <Robyn Anderson MD - Last Filed: 10/25/24 23:59> Extremity: Common normals: normal to inspection, full ROM and no pedal edema <Robyn Anderson MD - Last Filed: 10/25/24 23:59> Neuro: Common normals: moves all extremities and no focal motor deficits <Robyn Anderson MD - Last Filed: 10/25/24 23:59> Sensorium/orientation: alert <Robyn Anderson MD - Last Filed: 10/25/24 23:59> Speech: speech normal <Robyn Anderson MD - Last Filed: 10/25/24 23:59> Psych: Appearance: well kempt <Robyn Anderson MD - Last Filed: 23:59> Attitude: engaged <Robyn Anderson MD - Last Filed: 10/25/24 23:59> Activity/motor behavior: appropriate eye contact <Robyn Anderson MD - Last Filed: 10/25/24 23:59> Mood and affect: euthymic mood <Robyn Anderson MD - Last Filed: 10/25/24 23:59> Insight: insight good <MD Sandra Carlisle Last Filed: 10/25/24 23:59> Judgement: judgment good <MD Sandra Carlisle Last Filed: 10/25/24 23:59> Skin: Common normals: no rashes or lesions noted <MD Sandra Carlisle Last Filed: 10/25/24 23:59> General skin exam: no rashes or lesions noted <MD Sandra Carlisle Last Filed: 10/25/24 23:59> Course Course ED Course: 29-year-old female with syncopal episode with vaginal bleeding. No signs of significant hemorrhage. Differential diagnosis including acute cardiac process, less likely a neurological process, anemia, vagal episode, dehydration, arrhythmia, amongst others. Recommended laboratory studies to look for infection, hCG, EKG, hemoglobin, residential monitor. Will give 1 L IV fluid while we await lab findings. Update: EKG shows some diffuse ST changes which are a little worrisome for pericarditis. Will add troponin to our laboratory studies, chest x-ray. Handing over care to incoming day shift partner. <Robyn Anderson MD - Last Filed: 10/25/24 23:59> Vital Signs Vital signs: Initial Vital Signs Temperature 97.6 F 10/23/24 06:24 Temperature Source Temporal Artery Scan 10/23/24 06:24 Pulse Rate 77 10/23/24 06:24 Respiratory Rate 16 10/23/24 06:24 Blood Pressure 108/72 10/23/24 06:24 Blood Pressure Mean 84 10/23/24 06:24 Blood Pressure Position Sitting 10/23/24 06:24 Pulse Oximetry 96 10/23/24 06:24 Oxygen Delivery Method Room Air 10/23/24 06:24 Vital Signs Temperature 97.6 F 10/23/24 06:24 Pulse Rate 77 10/23/24 06:24 Respiratory Rate 16 10/23/24 06:24 Blood Pressure 108/72 10/23/24 06:24 Pulse Oximetry 96 10/23/24 06:24 Oxygen Delivery Method Room Air 10/23/24 06:24 Temperature 97.6 F 10/23/24 06:24 Pulse Rate 77 10/23/24 06:24 Respiratory Rate 16 10/23/24 06:24 Blood Pressure 108/72 10/23/24 06:24 Pulse Oximetry 96 10/23/24 06:24 Oxygen Delivery Method Room Air 10/23/24 06:24 <Robyn nAderson MD - Last Filed: 10/25/24 23:59> Initial Vital Signs Temperature 97.6 F 10/23/24 06:24 Temperature Source Temporal Artery Scan 10/23/24 06:24 Pulse Rate 77 10/23/24 06:24 Respiratory Rate 16 10/23/24 06:24 Blood Pressure 108/72 10/23/24 06:24 Blood Pressure Mean 84 10/23/24 06:24 Blood Pressure Position Sitting 10/23/24 06:24 Pulse Oximetry 96 10/23/24 06:24 Oxygen Delivery Method Room Air 10/23/24 06:24 Vital Signs Temperature 97.6 F 10/23/24 06:24 Pulse Rate 77 10/23/24 06:24 Respiratory Rate 16 10/23/24 06:24 Blood Pressure 108/72 10/23/24 06:24 Pulse Oximetry 96 10/23/24 06:24 Oxygen Delivery Method Room Air 10/23/24 06:24 Temperature 97.6 F 10/23/24 06:24 Pulse Rate 77 10/23/24 06:24 Respiratory Rate 16 10/23/24 06:24 Blood Pressure 108/72 10/23/24 06:24 Pulse Oximetry 96 10/23/24 06:24 Oxygen Delivery Method Room Air 10/23/24 06:24 <Deny Biggs MD - Last Filed: 10/23/24 09:02> Medications Administered Medications: Discontinued Medications Generic Name Dose Route Start Last Admin Trade Name Freq PRN Reason Stop Dose Admin Sodium Chloride 1,000 mls @ 1,000 mls/hr 10/23/24 06:56 10/23/24 07:08 0.9 % Sodium Chloride 1000 Ml IV 10/23/24 07:55 1,000 mls/hr .Q1H ALANIS Administration <Robyn Anderson MD - Last Filed: 10/25/24 23:59> Discontinued Medications Generic Name Dose Route Start Last Admin Trade Name Freq PRN Reason Stop Dose Admin Sodium Chloride 1,000 mls @ 1,000 mls/hr 10/23/24 06:56 10/23/24 07:08 0.9 % Sodium Chloride 1000 Ml IV 10/23/24 07:55 1,000 mls/hr .Q1H ALANIS Administration <Deny Biggs MD - Last Filed: 10/23/24 09:02> Medical Decision Making MDM Narrative Medical decision making narrative: Care for this patient was transferred to nv at the end of the overnight ysician shift. Chest x-ray returns with no acute findings. Additional lab results also are reassuring. The patient's EKG shows changes that I think are most likely related to early repolarization. I did relay information of results back with the patient who continues to feel back to normal. She prefers to return home. It seems much more likely that she had some kind a vasovagal episode with some extra contributors with no food or drink yet in the morning and using the toilet along with current menses. <Deny Biggs MD - Last Filed: 10/23/24 09:02> Lab Data Lab results reviewed: Yes I reviewed the patient's lab results <Robyn Anderson MD - Last Filed: 10/25/24 23:59> Labs: Lab Results 10/23/24 10/23/24 Range/Units 07:07 07:42 WBC 6.73 (4.50-11.00) K/uL RBC 4.63 (4.00-5.20) m/uL Hgb 13.7 (12.0-16.0) gm/dL Hct 40.6 (33.0-51.0) % MCV 88 (80-100) fL MCH 30 (26-34) pg MCHC 34 (32-36) gm/dL RDW Coeff of Mitali 12.0 (11.5-15.5) % Plt Count 243 (140-440) K/uL Neut % (Auto) 76.0 H (42.0-72.0) % Lymph % (Auto) 15.5 L (20-44) % Drew % (Auto) 7.1 (0.0-11.0) % Eos % (Auto) 1.2 (0.0-7.0) % Baso % (Auto) 0.1 (0.0-3.0) % Neut # (Auto) 5.10 (1.7-7.0) K/uL Lymph # (Auto) 1.00 (0.90-2.90) K/uL Drew # (Auto) 0.50 (0.00-0.90) K/UL Eos # (Auto) 0.08 (0.00-0.50) K/uL Baso # (Auto) 0.01 (0.00-0.30) K/uL Abs Immat Gran (auto) 0.01 (0.00-0.30) K/uL Imm/Tot Granulo (auto) 0.1 % Sodium 139 (135-149) mmol/L Potassium 3.8 (3.6-5.1) mmol/L Chloride 106 (96-114) mmol/L Carbon Dioxide 26 (20-32) mmol/L Anion Gap 7 (7-15) mEq/L BUN 11 (5-24) mg/dL Creatinine 0.8 (0.5-1.5) mg/dL Estimated Creat Clear 92.53 Estimated GFR 102 ml/min Glucose 92 (60-115) mg/dL Calcium 9.0 (8.4-10.6) mg/dL Troponin I < 0.01 (0.01-0.04) ng/mL C-Reactive Protein 1.0 (0.5-1.0) mg/dL HCG, Quant < 2.39 mIU/mL Lab Acknowledgement Test Added <Robyn Anderson MD - Last Filed: 10/25/24 23:59> Lab Results 10/23/24 10/23/24 Range/Units 07:07 07:42 WBC 6.73 (4.50-11.00) K/uL RBC 4.63 (4.00-5.20) m/uL Hgb 13.7 (12.0-16.0) gm/dL Hct 40.6 (33.0-51.0) % MCV 88 (80-100) fL MCH 30 (26-34) pg MCHC 34 (32-36) gm/dL RDW Coeff of Mitali 12.0 (11.5-15.5) % Plt Count 243 (140-440) K/uL Neut % (Auto) 76.0 H (42.0-72.0) % Lymph % (Auto) 15.5 L (20-44) % Drew % (Auto) 7.1 (0.0-11.0) % Eos % (Auto) 1.2 (0.0-7.0) % Baso % (Auto) 0.1 (0.0-3.0) % Neut # (Auto) 5.10 (1.7-7.0) K/uL Lymph # (Auto) 1.00 (0.90-2.90) K/uL Drew # (Auto) 0.50 (0.00-0.90) K/UL Eos # (Auto) 0.08 (0.00-0.50) K/uL Baso # (Auto) 0.01 (0.00-0.30) K/uL Abs Immat Gran (auto) 0.01 (0.00-0.30) K/uL Imm/Tot Granulo (auto) 0.1 % Sodium 139 (135-149) mmol/L Potassium 3.8 (3.6-5.1) mmol/L Chloride 106 (96-114) mmol/L Carbon Dioxide 26 (20-32) mmol/L Anion Gap 7 (7-15) mEq/L BUN 11 (5-24) mg/dL Creatinine 0.8 (0.5-1.5) mg/dL Estimated Creat Clear 92.53 Estimated GFR 102 ml/min Glucose 92 (60-115) mg/dL Calcium 9.0 (8.4-10.6) mg/dL Troponin I < 0.01 (0.01-0.04) ng/mL C-Reactive Protein 1.0 (0.5-1.0) mg/dL HCG, Quant < 2.39 mIU/mL Lab Acknowledgement Test Added <Deny Biggs MD - Last Filed: 10/23/24 09:02> ECG Data Attestation: I personally reviewed and interpreted this ECG as follows: <Robyn bettencourt MD - Last Filed: 10/25/24 23:59> Prior ECG tracings: not available for review <Robyn Anderson MD - Last Filed: 10/25/24 23:59> Interpretation: No previous EKG. EKG shows sinus bradycardia with a rate of 54. Normal intervals and axis but there are certainly some diffuse ST changes in all leads which are a bit concerning for pericarditis. <Robyn Anderson MD - Last Filed: 10/25/24 23:59> Discharge Plan Discharge Clinical Impression: Syncope, vasovagal <Robyn Anderson MD - Last Filed: 10/25/24 23:59> Patient Disposition: Home, Self-Care <Robyn Anderson MD - Last Filed: 10/25/24 23:59> Condition: Stable <Robyn Anderson MD - Last Filed: 10/25/24 23:59> Additional Instructions: continue current plans. Follow up with MD as needed or return if symptoms are recurrent or worsening. <Robyn Anderson MD - Last Filed: 10/25/24 23:59> Prescriptions: No Action No Known Home Medications <Robyn Anderson MD - Last Filed: 10/25/24 23:59> Follow Up/Referrals: Provider,Not a Local [Primary Care Provider] - <Robyn Anderson MD - Last Filed: 10/25/24 23:59> Stand Alone Forms: MyHealth Info Instructions <Robyn Anderson MD - Last Filed: 10/25/24 23:59>
[2024-10-23 07:21] LABS: Slide Review Reflex No
[2024-10-23 07:34] LABS: Chloride* 106 mmol/L (96-114); Potassium* 3.8 mmol/L (3.6-5.1); Sodium* 139 mmol/L (135-149)
[2024-10-23 07:37] LABS: Anion Gap 7 mEq/L (7-15); Blood Urea Nitrogen* 11 mg/dL (5-24); Carbon Dioxide* 26 mmol/L (20-32); Creatinine* 0.8 mg/dL (0.5-1.5); Est. Creatinine Clearance* 92.53; Estimated Glomerular Filt Rate 102 ml/min; Glucose* 92 mg/dL (60-115)
--- OUTSIDE RECORDS SUMMARY | 2024-10-23 07:42 | XMS_ITS | Clinical Summary ---
Author Organization [facility] Address [address] [place] [address] Care Team Providers Care Turn Operator Name Role Phone Needs Pcp, Assignment Primary Care Provider [phone] Source Comments You are receiving this document as you are listed as the primary care provider,follow-up provider, or the patient has been referred to you for consultation.This is in compliance with the Medicare and[facility]aid EHR Incentive Program,which states Providers who transition their patient to another setting of careor provider of care or refers their patient to another provider of care shouldprovide summary care record for each transition of care or referral. 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
--- NOTE | 2024-10-23 07:48 | CRLHL7_ITS ---
For Patients: As a result of the Century Cures Act, medical imaging exams and procedure reports are released immediately into your electronic medical record. You may view this report before your referring provider. If you have questions, please contact your health care provider. INDICATION: Syncope COMPARISON: None. TECHNIQUE: PA and lateral 2 view chest. FINDINGS: Lung volumes are good. No focal or diffuse opacities. No pulmonary edema. No pleural effusion. No pneumothorax. No pneumomediastinum. Cardiac silhouette size is at the upper limits of normal. Bones: Normal for age. IMPRESSION: Question mildly enlarged cardiac silhouette. No edema. Dictated by Radha Rutledge MD @ 10/23/2024 8:20:10 AM (Electronically Signed)
[2024-10-23 07:58] LABS: HCG Quantitative* < 2.39 mIU/mL
[2024-10-23 08:10] LABS: Troponin I* < 0.01 ng/mL (0.01-0.04)
== END 2024-10-23 09:12 | disposition home or self-care (01) ==
PROVIDERS: Emergency Provider Family Medicine
DX: R55 Syncope and collapse (principal)
CPT/HCPCS: 36415; 71046; 80048; 84484; 84702; 85025; 86140; 99284; J7030